=== PATIENT | female | born 2005 | race Caucasian/White ===

== ENCOUNTER 2024-06-18 23:51 | Emergency (ER) | payer BC, OTHER ==
[~2024-06-18] VITALS: Ht 160 cm; Wt 72.6 kg
[2024-06-19] MEDS: KETOROLAC TROMETHAMINE 15 MG/ML VIAL IV ONE (01:00)
[2024-06-19] MEDS: ONDANSETRON HCL/PF 4 MG/2 ML VIAL IVP ONE (01:00)
[2024-06-19] MEDS: FAMOTIDINE/PF INJ 20 MG/2 ML VIAL IV ONE (01:00)
[2024-06-19] MEDS ORDERED: KETOROLAC TROMETHAMINE 15 MG/ML VIAL ONE ×2 (01:06→01:59)
[2024-06-19] MEDS ORDERED: PANTOPRAZOLE 40 MG VIAL ONE (01:06)
[2024-06-19] MEDS ORDERED: ONDANSETRON HCL/PF 4 MG/2 ML VIAL ONE ×2 (01:07→02:50)
[2024-06-19] MEDS ORDERED: FAMOTIDINE/PF INJ 20 MG/2 ML VIAL IV ONE (01:07)
[2024-06-19 01:12] LABS: BASOPHILS % (AUTO) 0.2 % (0.0-2.0); EOSINOPHILS # (AUTO) 0.2 K/uL (0.0-0.7); EOSINOPHILS % (AUTO) 1.7 % (0.0-6.0); HEMATOCRIT 39 % (33-45); HEMOGLOBIN 13.2 g/dL (11.5-14.8); LYMPHOCYTES % (AUTO) 6.9 % (20.0-44.0); MEAN CORPUSCULAR HEMOGLOBIN 29 PG (26.0-33.0); MEAN CORPUSCULAR HGB CONC 34 g/dl (31.0-36.0); MEAN CORPUSCULAR VOLUME 86 fL (82-100); MONOCYTES # (AUTO) 0.7 K/uL (0.1-1.30); MONOCYTES % (AUTO) 4.9 % (2.0-12.0); NEUTROPHILS # (AUTO) 11.9 K/uL (1.8-8.9); NEUTROPHILS % (AUTO) 86.3 % (43.0-81.0); PLATELET COUNT (AUTO) 322 K/uL (150-450); RED BLOOD CELL COUNT(AUTO) 4.49 MIL/uL (4.0-5.2); RED CELL DISTRIBUTION WIDTH 13.7 % (11.5-15.0); WHITE BLOOD COUNT (AUTO) 13.8 K/uL (4.3-11.0)
[2024-06-19] MEDS: PANTOPRAZOLE 40 MG VIAL IV ONE (01:18)
[2024-06-19 01:22] LABS: CALCIUM, SERUM 8.7 mg/dL (8.5-10.1); CREATININE 0.7 mg/dL (0.6-1.3); POTASSIUM 3.5 mmol/L (3.5-5.1)
[2024-06-19 01:28] LABS: ALBUMIN 3.6 g/dL (3.4-5.0); BILIRUBIN,DIRECT 0.2 mg/dL (0.0-0.2); TOTAL PROTEIN, SERUM 6.4 g/dL (6.4-8.2)
[2024-06-19] MEDS ORDERED: CT SWABBABLE VALVE TRANS SET 1 EA INFUS.SET MC ONE (01:42)
[2024-06-19] MEDS ORDERED: IOHEXOL-300 100 ML VIAL IV ONE (01:42)
[2024-06-19 01:56] LABS: APPEARANCE,URINE CLEAR (CLEAR); BILIRUBIN,URINE NEGATIVE (NEGATIVE); BLOOD, URINE NEGATIVE Ery/uL (NEGATIVE); COLOR,URINE YELLOW (YELLOW); KETONES,URINE NEGATIVE (NEGATIVE); LEUKOCYTE ESTERASE ,URINE NEGATIVE (NEGATIVE); NITRITE, URINE NEGATIVE (NEGATIVE); PROTEIN,URINE NEGATIVE (NEGATIVE); UGLUCOSE NEGATIVE (NEGATIVE); UROBILINOGEN,URINE 0.2 EU/dL (0.2)
[2024-06-19 01:57] LABS: PREGNANCY TEST URINE QUAL NEGATIVE (NEGATIVE)
[2024-06-19] MEDS ORDERED: ONDA4TAB5 PO (02:48)
[2024-06-19] MEDS ORDERED: FAMO20TA80 PO (02:48)
[2024-06-19] MEDS ORDERED: DICY10CA37 PO (02:48)
[2024-06-19] MEDS ORDERED: DICYCLOMINE HCL 10 MG CAPSULE PO ONE (02:51)
[2024-06-19] MEDS: ONDANSETRON HCL/PF - ER 4 MG/2 ML VIAL IV ONE (02:54)
[2024-06-19] MEDS: DICYCLOMINE HCL 10 MG CAPSULE PO ONE (02:54)
[2024-06-19 03:06] VITALS: BP 122/66; TEMP 98.3; O2SAT 100
== END 2024-06-19 03:06 | disposition home or self-care (01) ==
LOC: ER 23:54
DX: K52.9 Noninfective gastroenteritis and colitis, unspecified (principal)
CPT/HCPCS: 99285; 74177; 96374; 96375; 96376; 85025; 80048; 83690; 80076; 84703; 81003; 36415; J3490; J2405 ×2; J2470; Q9967; J1885 ×2